=== PATIENT | female | born 1980 | race African-American/Black ===

== ENCOUNTER 2018-02-06 08:45 | Emergency (ER) | payer MEDICARE, MEDICAID ==
[~2018-02-06] VITALS: Ht 172.7 cm; Wt 73.0 kg
[2018-02-06] MEDS ORDERED: SODIUM CHLORIDE 0.9% 1,000 ML IV ONE (10:34)
[2018-02-06] MEDS ORDERED: ONDANSETRON HCL 4MG/2ML INJ IV STA (10:34)
[2018-02-06 11:55] LABS: BASOPHILS % 0.3 % (0.0-2.0); HEMATOCRIT. 43.4 % (36.0-48.0); HEMOGLOBIN. 14.6 g/dL (12.0-16.0); LYMPHOCYTES % 10.1 % (20.0-50.0); MEAN CORPUSCULAR HEMOGLOBIN 31.9 pg (28.0-32.0); MEAN PLATELET VOLUME 10.4 fl (7.4-10.4); MONOCYTES % 5.4 % (2.0-8.0); NEUTROPHILS % 84.2 % (40.0-76.0); PLATELET 215 x1000/uL (130-400); RED BLOOD CELL COUNT 4.57 mill/uL (4.2-5.4); RED CELL DISTRIBUTION WIDTH 15.7 % (11.6-14.6)
[2018-02-06 12:03] LABS: CHLORIDE 103 mEq/L (98-107)
[2018-02-06 12:20] LABS: CLARITY URINE CLEAR (CLEAR); COLOR URINE YELLOW (YELLOW); KETONES URINE 4+ (NEGATIVE); LEUKOCYTE ESTERASE URINE NEGATIVE (NEGATIVE); NITRITE URINE NEGATIVE (NEGATIVE); OCCULT BLOOD URINE NEGATIVE (NEGATIVE); PROTEIN URINE 1+ (NEGATIVE); SPECIFIC GRAVITY URINE 1.027 (1.005-1.030)
[2018-02-06] MEDS ORDERED: METOCLOPRAMIDE HCL 10MG/2ML VIAL IV ONE (13:15)
[2018-02-06 13:22] VITALS: BP 162/101
== END 2018-02-06 14:20 | disposition home or self-care (01) ==
LOC: ER 08:45
DX: E86.0 Dehydration (principal); R11.10 Vomiting, unspecified; R03.0 Elevated blood-pressure reading, without diagnosis of hypertension; F15.10 Other stimulant abuse, uncomplicated
CPT/HCPCS: 36415; 80053; 81003; 85025; 93005; 96361; 96374; 96375; 99285; J2405; J2765; J7030

== ENCOUNTER 2018-08-04 18:25 | Emergency (ER) | payer MEDICARE, MEDICAID ==
[~2018-08-04] VITALS: Ht 170.2 cm; Wt 69.0 kg
[2018-08-04] MEDS ORDERED: SODIUM CHLORIDE 0.9% 1000ML BAG (SEPSIS BOLUS) IV ONE (18:45)
[2018-08-04] MEDS ORDERED: ALBUTEROL (0.083%) 2.5MG/3ML NEB HHN STA (22:53)
[2018-08-04] MEDS ORDERED: METHYLPREDNISOLONE SOD SUCC 125 MG/2 ML VIAL IV STA (22:53)
[2018-08-04] MEDS ORDERED: IPRATROPIUM BROMIDE (0.02%) 0.5MG/2.5ML NEB HHN STA (22:53)
[2018-08-04] MEDS ORDERED: ONDANSETRON HCL 4MG/2ML INJ IV ONE (23:00)
[2018-08-04] MEDS ORDERED: KETOROLAC 30MG/ML VIAL IV ONE (23:00)
[2018-08-04 23:58] LABS: CHLORIDE 101 mEq/L (98-107)
[2018-08-05] LABS: HCG SCREEN NEGATIVE
[2018-08-05 00:03] LABS: PROTHROMBIN TIME 10.1 sec (9.1-11.1)
[2018-08-05 00:08] LABS: BASOPHILS % 0.3 % (0.0-2.0); HEMOGLOBIN. 16.3 g/dL (12.0-16.0); LYMPHOCYTES % 7.6 % (20.0-50.0); MEAN CORPUSCULAR HEMOGLOBIN 31.2 pg (28.0-32.0); MEAN CORPUSCULAR VOLUME 93.7 fL (81.0-99.0); MEAN PLATELET VOLUME 10.8 fl (7.4-10.4); MONOCYTES % 4.4 % (2.0-8.0); NEUTROPHILS % 87.7 % (40.0-76.0); PLATELET 227 x1000/uL (130-400); RED BLOOD CELL COUNT 5.23 mill/uL (4.2-5.4); RED CELL DISTRIBUTION WIDTH 15.6 % (11.6-14.6)
[2018-08-05 01:53] LABS: CLARITY URINE TURBID (CLEAR); COLOR URINE DARK YELLOW (YELLOW); KETONES URINE 3+ (NEGATIVE); LEUKOCYTE ESTERASE URINE 1+ (NEGATIVE); NITRITE URINE POSITIVE (NEGATIVE); OCCULT BLOOD URINE NEGATIVE (NEGATIVE); PROTEIN URINE 2+ (NEGATIVE); SPECIFIC GRAVITY URINE 1.041 (1.005-1.030)
[2018-08-05 02:08] LABS: *BARBITURATES SCREEN URINE NEGATIVE (NEGATIVE); *BENZODIAZEPINES SCREEN URINE NEGATIVE (NEGATIVE)
[2018-08-05 02:09] LABS: METHADONE URINE SCREEN NEGATIVE (NEGATIVE); OPIATES URINE SCREEN NEGATIVE (NEGATIVE); PHENCYCLIDINE URINE SCREEN NEGATIVE (NEGATIVE)
[2018-08-05 02:10] LABS: *AMPHETAMINES SCREEN URINE PRESUMTIVE POSITIVE (NEGATIVE); *COCAINE SCREEN URINE PRESUMTIVE POSITIVE (NEGATIVE); CANNABINOID URINE SCREEN PRESUMTIVE POSITIVE (NEGATIVE)
[2018-08-05] MEDS ORDERED: ONDANSETRON HCL 4MG/2ML INJ IV ONE (03:45)
[2018-08-05 05:06] VITALS: BP 132/65
== END 2018-08-05 05:07 | disposition home or self-care (01) ==
LOC: ER 18:25
DX: M79.10 Myalgia, unspecified site (principal); R10.32 Left lower quadrant pain; R11.2 Nausea with vomiting, unspecified; J45.909 Unspecified asthma, uncomplicated
CPT/HCPCS: 36415; 71045; 74176; 80053; 80305; 81003; 81025; 83605; 83690; 83880; 84145; 84484; 84703; 85025; 85610; 87040; 87086; 87804; 93005; 96361; 96374; 96375; 99284; J1885; J2405; J2930; J7030

== ENCOUNTER 2018-10-06 18:24 | Inpatient (IN) | payer MEDICARE, MEDICAID ==
[~2018-10-06] VITALS: Ht 165.1 cm; Wt 63.5 kg
[2018-10-06] MEDS ORDERED: SODIUM CHLORIDE 0.9% 1,000 ML IV ONE (22:46)
[2018-10-06 23:17] LABS: BASOPHILS % 0.7 % (0.0-2.0); EOSINOPHILS % 0.3 % (0.0-5.0); HEMATOCRIT. 48.9 % (36.0-48.0); HEMOGLOBIN. 16.6 g/dL (12.0-16.0); LYMPHOCYTES % 27.6 % (20.0-50.0); MEAN CORPUSCULAR HEMOGLOBIN 31.2 pg (28.0-32.0); MEAN CORPUSCULAR VOLUME 92.3 fL (81.0-99.0); MEAN PLATELET VOLUME 9.4 fl (7.4-10.4); MONOCYTES % 9.9 % (2.0-8.0); NEUTROPHILS % 61.5 % (40.0-76.0); PLATELET 185 x1000/uL (130-400); RED CELL DISTRIBUTION WIDTH 13.8 % (11.6-14.6)
[2018-10-06 23:24] LABS: CHLORIDE 101 mEq/L (98-107)
[2018-10-06] MEDS ORDERED: CLONIDINE 0.2MG TABLET PO SCH (23:30)
[2018-10-07] VITALS (7 sets, daily range): BP systolic 100–146; BP diastolic 69–101
[2018-10-07] MEDS ORDERED: ONDANSETRON HCL 4MG/2ML INJ IV ONE
[2018-10-07] MEDS ORDERED: KETOROLAC 30MG/ML VIAL IV ONE (00:15)
[2018-10-07 00:36] LABS: CLARITY URINE CLOUDY (CLEAR); COLOR URINE DARK YELLOW (YELLOW); KETONES URINE 3+ (NEGATIVE); LEUKOCYTE ESTERASE URINE TRACE (NEGATIVE); NITRITE URINE NEGATIVE (NEGATIVE); OCCULT BLOOD URINE 3+ (NEGATIVE); PH URINE 6.5 (4.5-8.0); PROTEIN URINE 1+ (NEGATIVE); SPECIFIC GRAVITY URINE 1.045 (1.005-1.030)
[2018-10-07 00:46] LABS: *AMPHETAMINES SCREEN URINE NEGATIVE (NEGATIVE); *BARBITURATES SCREEN URINE NEGATIVE (NEGATIVE); *BENZODIAZEPINES SCREEN URINE NEGATIVE (NEGATIVE); *COCAINE SCREEN URINE NEGATIVE (NEGATIVE); METHADONE URINE SCREEN NEGATIVE (NEGATIVE)
[2018-10-07 00:47] LABS: CANNABINOID URINE SCREEN PRESUMTIVE POSITIVE (NEGATIVE); OPIATES URINE SCREEN NEGATIVE (NEGATIVE); PHENCYCLIDINE URINE SCREEN NEGATIVE (NEGATIVE)
[2018-10-07] MEDS ORDERED: HYDRALAZINE 20MG/ML VIAL IV SCH (02:09)
[2018-10-07] MEDS ORDERED: POTASSIUM CHLORIDE 20MEQ TABLET SR PO SCH (02:09)
[2018-10-07] MEDS ORDERED: CEFTRIAXONE 1 G PREMIX 50 ML IV SCH ×2 (02:10→06:15)
[2018-10-07] MEDS ORDERED: albuterol (04:43)
[2018-10-07] MEDS ORDERED: MAGNESIUM/ALUMINUM HYDROXIDE/SIMETHICONE 30ML UDC PO PRN (06:15)
[2018-10-07] MEDS ORDERED: HYDRALAZINE 20MG/ML VIAL IV PRN (06:15)
[2018-10-07] MEDS ORDERED: GUAIFENESIN 200MG/10ML SUGAR FREE UDC PO PRN (06:15)
[2018-10-07] MEDS ORDERED: LORAZEPAM 2MG/ML CPJ IV PRN (06:15)
[2018-10-07] MEDS ORDERED: ACETAMINOPHEN 325MG TABLET PO PRN (06:15)
[2018-10-07] MEDS ORDERED: IPRATROPIUM/ALBUTEROL 0.5-3(2.5)MG/3ML NEB INH PRN (06:15)
[2018-10-07] MEDS ORDERED: DOCUSATE SODIUM 100MG CAPSULE PO PRN (06:15)
[2018-10-07] MEDS ORDERED: HYDROCODONE/ACETAMINOPHEN 10/325MG TABLET PO PRN (06:15)
[2018-10-07 08:05] LABS: CHLORIDE 105 mEq/L (98-107)
[2018-10-07] MEDS ORDERED: NA PHOS,M-B/NA PHOS,DI-BA ENEMA 118ML PR PRN (09:00)
[2018-10-07] MEDS: ONDANSETRON HCL 4MG/2ML INJ IV PRN ×2 (10:01→19:15)
[2018-10-07] MEDS: ENOXAPARIN 40MG/0.4ML SYR SUBCUT SCH (10:38)
[2018-10-07] MEDS: DIPHENHYDRAMINE 50MG/ML VIAL IV PRN ×2 (10:42→19:15)
[2018-10-07] MEDS ORDERED: DEXT 5%/0.45% NACL 1000ML 1,000 ML IV SCH (14:00)
[2018-10-07] MEDS: CLONIDINE 0.1MG TABLET PO PRN (14:16)
[2018-10-07] MEDS: SODIUM CHLORIDE 0.9% INJ 3ML FLUSH IVF SCH ×2 (15:45→21:38)
[2018-10-07 15:48] LABS: CREATINE KINASE 40 IU/L (26-192)
[2018-10-07 15:49] LABS: CREATINE KINASE MB FRACTION < 1.0 ng/mL (0.5-3.6)
[2018-10-07 23:17] LABS: CREATINE KINASE 37 IU/L (26-192)
[2018-10-07 23:18] LABS: CREATINE KINASE MB FRACTION < 1.0 ng/mL (0.5-3.6)
[2018-10-08] VITALS: BP 157/107
[2018-10-08] MEDS: DIPHENHYDRAMINE 50MG/ML VIAL IV PRN ×2 (00:03→09:00)
[2018-10-08 01:15] VITALS: BP 124/89
[2018-10-08] MEDS ORDERED: CEFTRIAXONE 1 G PREMIX 50 ML IV SCH (02:30)
[2018-10-08 04:00] VITALS: BP 140/92
[2018-10-08] MEDS: SODIUM CHLORIDE 0.9% INJ 3ML FLUSH IVF SCH ×2 (06:01→13:06)
[2018-10-08 07:46] LABS: BASOPHILS % 0.9 % (0.0-2.0); CHLORIDE 104 mEq/L (98-107); EOSINOPHILS % 0.8 % (0.0-5.0); HEMATOCRIT. 42.4 % (36.0-48.0); HEMOGLOBIN. 14.6 g/dL (12.0-16.0); LYMPHOCYTES % 28.1 % (20.0-50.0); MEAN CORPUSCULAR HEMOGLOBIN 31.5 pg (28.0-32.0); MEAN CORPUSCULAR VOLUME 91.6 fL (81.0-99.0); MEAN PLATELET VOLUME 9.9 fl (7.4-10.4); MONOCYTES % 10.9 % (2.0-8.0); NEUTROPHILS % 59.3 % (40.0-76.0); PLATELET 173 x1000/uL (130-400); RED BLOOD CELL COUNT 4.63 mill/uL (4.2-5.4); RED CELL DISTRIBUTION WIDTH 13.4 % (11.6-14.6)
[2018-10-08 08:00] VITALS: BP 136/99
[2018-10-08] MEDS: CLONIDINE 0.1MG TABLET PO PRN (08:40)
[2018-10-08] MEDS: ENOXAPARIN 40MG/0.4ML SYR SUBCUT SCH (08:41)
[2018-10-08] MEDS: ONDANSETRON HCL 4MG/2ML INJ IV PRN (09:00)
[2018-10-08] MEDS ORDERED: POTASSIUM CHLORIDE 20MEQ TABLET SR PO SCH ×2 (09:00→14:00)
[2018-10-08 12:00] VITALS: BP 112/80
[2018-10-08 12:23] VITALS: BP 112/80
== END 2018-10-08 14:10 | disposition home or self-care (01) | DRG 392 ==
LOC: ER 18:24 → 5WST 10-07 02:03 → EDBEDREQ 10-07 02:05 → EDBEDREQTM 10-07 02:05 → EDBEDREQDT 10-07 02:05 → ENRESERV 10-07 02:59
PROVIDERS: ADMIT Internal Medicine; ATTEND Internal Medicine
DX: D18.03 Hemangioma of intra-abdominal structures (principal); N39.0 Urinary tract infection, site not specified; E87.6 Hypokalemia; I10 Essential (primary) hypertension; J45.909 Unspecified asthma, uncomplicated; E86.0 Dehydration; D45 Polycythemia vera; Z79.899 Other long term (current) drug therapy
CPT/HCPCS: 36415; 71045; 76700; 80305; 82550; 82553; 82668; 84484; 93005; 96374; 96375; 99285; J0360; J0696; J1200; J1650; J1885; J2060; J2405; J7030